=== PATIENT | female | born 1970 | race Caucasian/White ===

== ENCOUNTER → 2016-10-01 | Outpatient (CLI) | payer OTHER ==
--- NOTE | 2016-10-01 11:41 | RAD ---
Lumbar spine radiograph 10/01/2016 at 1026 hours Indication: Degenerative disc disease, intermittent pain radiating down left leg Comparison: None Technique: 2 views of the lumbar spine are provided. Findings: There are 5 nonrib-bearing lumbar type vertebral bodies. No acute fracture is identified. There is normal alignment of the lumbar spine. There is degenerative disc disease at L3-L4, L4-L5, and L5-S1. Mild to moderate osseous neural foraminal stenosis at L3-L4. There is moderate facet arthropathy in the lower lumbar spine. No spondylolysis or spondylolisthesis. Impression: Multilevel degenerative disc disease most prominent from L3-L4 through L5-S1.
== END | disposition home or self-care (01) ==
LOC: RAD 10:06
PROVIDERS: ATTEND Neuromusculoskeletal Medicine, Sports Medicine
DX: M51.36 Other intervertebral disc degeneration, lumbar region (principal); M51.37 Other intervertebral disc degeneration, lumbosacral region
CPT/HCPCS: 72100